=== PATIENT | female | born 2000 | race Caucasian/White ===

== ENCOUNTER → 2019-04-01 07:55 | Outpatient (BNVA) | payer MEDICAID, SELFPAY | PROVIDERS: Family Provider Physician Assistant Medical; PCP Physician Assistant Medical; Visit Provider Obstetrics & Gynecology | DX: Z34.90 Encounter for supervision of normal pregnancy, unspecified, unspecified trimester (principal) | CPT/HCPCS: 81003 ==

== ENCOUNTER → 2019-04-15 08:35 | Outpatient (BNVA) | payer MEDICAID, SELFPAY | PROVIDERS: Family Provider Physician Assistant Medical; PCP Physician Assistant Medical; Visit Provider Obstetrics & Gynecology | DX: Z34.90 Encounter for supervision of normal pregnancy, unspecified, unspecified trimester (principal) | CPT/HCPCS: 81000; 81003; 87081 ==

== ENCOUNTER → 2019-04-22 08:00 | Outpatient (BNVA) | payer MEDICAID, SELFPAY | PROVIDERS: Family Provider Physician Assistant Medical; PCP Physician Assistant Medical; Visit Provider Obstetrics & Gynecology | DX: Z34.90 Encounter for supervision of normal pregnancy, unspecified, unspecified trimester (principal) | CPT/HCPCS: 81000; 81003 ==

== ENCOUNTER → 2019-04-29 08:53 | Outpatient (BNVA) | payer MEDICAID, SELFPAY | PROVIDERS: Family Provider Physician Assistant Medical; PCP Physician Assistant Medical; Visit Provider Obstetrics & Gynecology | DX: Z34.90 Encounter for supervision of normal pregnancy, unspecified, unspecified trimester (principal) | CPT/HCPCS: 81003 ==

== ENCOUNTER 2019-05-04 19:33 | Inpatient (IN) | payer MEDICAID, SELFPAY ==
[2019-05-04] VITALS (40 sets, daily range): BP systolic 0–151; BP diastolic 0–89; PULSE 73–116; RESP 16–18; TEMP 36.7–37; BMI 27.1
[2019-05-04 17:16] LABS: Nitrazine Paper, PH Inconclusive
[2019-05-04 17:26] LABS: Actim Prom Positive
[2019-05-04 17:45] LABS: Glucose Urine UA Norm (Normal); Ketones Urine Negative (Negative); Protein Urine Neg (Negative); Specific Gravity, Urine 1.015 (1.005-1.030); Urine Appearance Clear (CLEAR); Urine Color Yellow (Yellow); pH Urine 6.5 (5-7)
[2019-05-04 17:46] LABS: Add Urine Microscopic? YES; Bilirubin Urine Neg (NEGATIVE); Blood Urine 2+ (Negative); Leukocyte Esterase Urine Negative (Negative); Nitrate Urine Negative (Negative); Squamous Epithelial Cell Urine 0-4 (0-5); Urobilinogen Urine Norm (Negative)
[2019-05-04 17:47] LABS: Bacteria Urine TRACE; Mucus Urine TRACE
[2019-05-04 17:49] LABS: Add Urine Culture? No; Amphetamines Screen Urine Negative (Negative); Barbiturates Screen Urine Negative (Negative); Benzodiazepines Screen Urine Negative (Negative); Cocaine Screen Urine Negative (Negative); Opiate Screen Urine Negative (Negative); PCP Screen Urine Negative (Negative); THC Screen Urine Negative (Negative)
[2019-05-04 19:17] LABS: Basophils % 0.4 %; Eosinophils # 0.1 10^3/uL (0.0-0.8); Eosinophils % 0.7 %; Hematocrit 33.5 % (37.0-47.0); Hemoglobin 11.3 g/dL (11.5-15.3); Lymphocytes # 2.2 10^3/uL (0.8-4.8); Lymphocytes % 20.6 %; Mean Corpuscular HGB Conc 33.7 g/dL (30.0-36.0); Mean Corpuscular Hemoglobin 27.5 pg (28.0-34.0); Mean Corpuscular Volume 81.5 fL (81-99); Mean Platelet Volume 12.3 fL (7.4-10.4); Monocytes # 0.9 10^3/uL (0.2-0.9); Monocytes % 8.9 %; Neutrophils # 7.3 10^3/uL (1.8-7.7); Neutrophils % 68.7 %; Nucleated Red Blood Cells % 0 %; Platelet Count 181 10^3/cmm (130-400); Red Blood Count 4.11 10^6/uL (4.1-5.3); Red Cell Distribution Width 12.2 % (12.1-15.1); White Blood Count 10.6 10^3/uL (4.0-10.0)
[2019-05-04] MEDS: fentaNYL 50 mcg/mL INJ 2mL IV ×2 (22:16→23:51)
[2019-05-05] VITALS (156 sets, daily range): BP systolic 0–151; BP diastolic 0–104; PULSE 75–157; RESP 16–22; TEMP 36.4–37.1; O2SAT 93–98
[2019-05-05] MEDS: fentaNYL 50 mcg/mL INJ 2mL IV ×3 (01:52→04:59)
[2019-05-05] MEDS: lactated ringers 1,000 ML 999 ML IV ×2 (06:19→07:28)
--- NOTE | 2019-05-05 08:01 | ANES.PROC ---
Anesthesia Procedures Procedure/Date: 05/05/19 Epidural: Time Out Performed: Yes Consents Signed: Procedure Consent Consent: requested by attending/covering physician, risks and benefits reviewed and patient agrees to proceed Lumbar Level: L4-L5 Epidural position: sitting Epidural procedure: sterile prep of area, 1% lidocaine to numb the area, 18 g needle, negative for paresthesia passed, neg for paresthesia, test dose given, 1.5% xylocaine 1:200k epi, placed PCEA, no systemic response, sterile dressing applied, L.U.D. no apparent complications and 0.2% Ropiavacaine @ mls/hr (13)
[2019-05-05] MEDS: dextrose 5%-lactated ringers 1,000 ML 125 ML IV (12:21)
--- NOTE | 2019-05-05 13:25 | PM.PN ---
Subjective Subjective: Interval history: 19-year-old female with an estimated gestational age of 39 weeks, with premature rupture of membranes in active labor. Patient refers feeling comfortable. Vitals/I&O/Wt Last Vital Signs Temp 97.7 F 05/05/19 11:00 Pulse 76 05/05/19 13:05 Resp 16 05/05/19 11:00 BP 0/0 05/05/19 13:23 Pulse Ox 96 05/05/19 07:59 05/04/19 05/05/19 05/05/19 22:59 06:59 14:59 Intake Total 466.2 / 466.2 Balance 466.2 / 466.2 Weight last 48 hrs Weight 151 lb Physical Exam Narrative: EXAM NARRATIVE: GA: Alert and oriented ?3. Lungs: Clear to auscultation bilaterally. Heart: regular rhythm and rate. Abdomen: Gravid, fundal height correlates dates, nontender. FREIGHT ASSOCIATE: SVE; dilation: 7 cm, effacement: 90 %, station: 0, presentation: vertex, membranes: Prom. Extremities: no edema, no cyanosis, no calves pain. heart tracing: Basal rate: 130s bpm, Variability: moderate, Accelerations: present, Decelerations: absent, Contractions: every 4-5 minutes. Urinary Catheter Management^: Salgado: Cath Placed During This Visit: yes Urethral Indwelling: Yes Reason for Continuing Indwelling Catheter: Other Urinary Catheter Date of Insertion: 05/05/19 Urinary Catheter Time of Insertion: 08:35 Data : 05/04/19 18:54 A&P Assessment and plan (1) Term : 1-year-old female with term active labor. Epidural placed. Progressing slowly. Oxytocin augmentation recommended. Feels Stimulation positive. heart tracing reassuring. Anticipate vaginal delivery. Status: Acute Code(s): Z34.90 - Encounter for supervision of normal , unspecified, unspecified trimester (2) PROM with onset of labor more than 24 hours following rupture: The patient was started with prophylactic antibiotics. Status: Acute Code(s): O42.10 - Premature rupture of membranes, onset of labor more than 24 hours following rupture, unspecified weeks of gestation Attestations Medical Necessity Statement*: In my professional opinion perr admitting diagnosis. Coding Level of Care Code Acute Intervention Manager for g Fwd Diagnoses Term Z34.90 PROM with onset of labor more than 24 hours following rupture O42.10
[2019-05-05] MEDS: oxytocin 30 UNIT/500 ML BAG IV (13:28)
[2019-05-05] MEDS: ampicillin 2,000 MG in sodium chloride 0.9% (plus) 50 ML 100 MG IV (18:49)
[2019-05-05] MEDS: methylergonovine 0.2 mg/mL INJ 1 mL IM (20:34)
--- NOTE | 2019-05-05 20:50 | P.PCNOB_ITS ---
Delivery Note: Date of delivery: May 05, 2019 Pre-delivery diagnoses: term . Premature rupture of membranes. Post-delivery diagnoses: Term delivered. Procedure: Spontaneous vaginal delivery Delivering Physician: Joshua Duong M.D. Estimated blood loss (mL): 500 Pre-Delivery Course: The patient is a 19 yo G 1 P 0 at 39+4 weeks EGA who has been receiving care from [facility]. Came to labor and delivery referring possible rupture of membranes. The contractions are occurring at 5-10 minute intervals with approximately 30 second duration. She continues to feel movement between the contractions. She denies vaginal bleeding.. Actimprom positive LMP: June 2018 Estimated date of confinement: 05/08/2019 by ultrasound at 11 weeks CC: Onset of labor at term. HPI: Received appropriate care. Daily vitamins since two months prior to conception. labs have all been normal, including negative for HIV. She was found to negative for Group B Strep from screening at 36 weeks. She has gained approximately 17 lbs throughout the . She denies a history of HTN during . Glucose tolerance screening for gestational diabetes was negative. Delivery: The patient was noted to be complete and pushing, so was placed in the dorsal lithotomy position, prepped and draped in the usual sterile fashion for a vaginal delivery. Pt. Noted to have epidural anesthesia. The patient delivered a viable at 39+5 female infant weighing 3335 g with scores of 7 and 9 at one and five minutes, respectively. The vertex was delivered spontaneously over intact perineum. The patient was asked to push and the head delivered spontaneously in the TORRES position, over an intact perineum. A nuchal cord was checked and none noted. The anterior shoulder delivered easily and the posterior shoulder followed. The remainder of the was easily delivered and the oropharynx and nasopharynx was bulb suctioned. The infant was noted to have spontaneous cry and spontaneous movement of all four extremities. The cord was clamped x 2 and cut and noted to have 2 arteries and one vein. The infant was passed to the mother's abdomen where nursing personnel were in attendance.. The placenta delivered intact spontaneously and the uterus was explored. 20 units of Pitocin was placed in the IV bag to firm the uterus. Examination of the cervix and vaginal vault did not reveal any lacerations. A vaginal pack was then placed. Examination of the perineum showed no lacerations. The vaginal pack was then removed. The patient tolerated this procedure well, and recovered in L&D with her infant [or note if taken to NICU]. All sponge and needle counts were correct. Post-Delivery Status: good and stable A&P Assessment and plan (1) Term : Status: Resolved Code(s): Z34.90 - Encounter for supervision of normal , unspecified, unspecified trimester (2) PROM with onset of labor more than 24 hours following rupture: Status: Resolved Code(s): O42.10 - Premature rupture of membranes, onset of labor more than 24 hours following rupture, unspecified weeks of gestation Coding Level of Care Code Acute System Planning Engineer for Chg Fwd Diagnoses Term Z34.90 PROM with onset of labor more than 24 hours following rupture O42.10
[2019-05-06] VITALS (8 sets, daily range): BP systolic 101–134; BP diastolic 63–89; PULSE 78–94; RESP 12–18; TEMP 36.4–36.8; O2SAT 97
[2019-05-06] MEDS: docusate sodium 100 mg Capsule PO ×2 (10:42→18:54)
[2019-05-06] MEDS: prenatal vitamin Capsule 1 CAP PO (10:43)
[2019-05-06 12:00] LABS: Hemoglobin 9.2 g/dL (11.5-15.3); Mean Corpuscular HGB Conc 32.9 g/dL (30.0-36.0); Mean Corpuscular Hemoglobin 28.2 pg (28.0-34.0); Mean Corpuscular Volume 85.9 fL (81-99); Platelet Count 149 10^3/cmm (130-400); Red Blood Count 3.26 10^6/uL (4.1-5.3); Red Cell Distribution Width 12.4 % (12.1-15.1); White Blood Count 16.6 10^3/uL (4.0-10.0)
[2019-05-06] MEDS: HYDROcodone-acetaminophen 5-325 mg Tablet PO (18:54)
--- NOTE | 2019-05-06 20:27 | PC.NURSE ---
RHOGAM ADMINISTRATION WHEN THIS NURSE TRIED SCANNING RHOGAM FOR ADMINISTRATION, SCREEN FLASHED MESSAGE SAYING LOT NUMBER INCORRECT. THIS NURSE NOTED LOT NUMBER AND EXPIRATION DATE/TIME FOR RHOGAM WERE PRINTED ON VIAL BUT NOT SCANNABLE. THIS NURSE REVIEWED PT WRISTBAND, BLOOD BAND NUMBERS WITH BLOOD BANK WHEN PICKING UP RHOGAM, AND REVIEWED ALL INFORMATION FOR RHOGAM INCLUDING PT NAME, , MEDICAL NUMBER, BLOOD BANK NUMBER, RHOGAM LOT AND EXPIRATION NUMBERS WITH Iesha KIRKLAND RN BEFORE ADMINISTERING TO PT. THIS NURSE TOOK PT VITALS BEFORE ADMINISTRATION. LOT NUMBER OF RHOGAM IS [id number]. EXPIRATION DATE/TIME FOR RHOGAM IS 12/07/20 7700. PT TOLERATED ADMINISTRATION TO RIGHT ARM WELL.
[2019-05-07 03:36] VITALS: BP 110/63; PULSE 56; RESP 16; TEMP 36.5; O2SAT 98
[2019-05-07] MEDS: prenatal vitamin Capsule 1 CAP PO (09:41)
[2019-05-07] MEDS: docusate sodium 100 mg Capsule PO (09:42)
[2019-05-07 11:00] VITALS: BP 117/68; PULSE 73; RESP 18; TEMP 36.7; O2SAT 98
--- NOTE | 2019-05-07 12:58 | PM.OBGYDC ---
Discharge Providers SENIOR BOILER OPERATOR Date of Admission: 05/04/19 19:33 Date of Discharge: 05/27/19 Attending Provider at Admission: Josuha Duong MD Attending Provider at Discharge: Joshua Duong MD Primary Care Provider: Francie Lane Diagnoses at Discharge Discharge Diagnosis (1) Term : Status: Resolved (2) PROM with onset of labor more than 24 hours following rupture: Status: Resolved Reason for Visit Reason for Visit: Reason For Visit: vaginal discharge Hospital Course Hospital Course: The patient is a 19 yo G 1 P 0 at 39+4 weeks EGA who has been receiving care from [facility]. Came to labor and delivery referring possible rupture of membranes. The contractions are occurring at 5-10 minute intervals with approximately 30 second duration. She continues to feel movement between the contractions. She denies vaginal bleeding.. Actimprom positive LMP: June 2018 Estimated date of confinement: 05/08/2019 by ultrasound at 11 weeks CC: Onset of labor at term. HPI: Received appropriate care. Daily vitamins since two months prior to conception. labs have all been normal, including negative for HIV. She was found to negative for Group B Strep from screening at 36 weeks. She has gained approximately 17 lbs throughout the . She denies a history of HTN during . Glucose tolerance screening for gestational diabetes was negative. Discharge Summary: Patient came to labor and delivery referring premature rupture of membranes. Premature rupture of membrane was confirmed. She progressed to have a spontaneous vaginal delivery without complications. recovery was uneventful. She delivered an girl at 39+4 weeks, Apgars 7/9 with weight of 3335 g. Information Peripartum Data: Infant Delivery Method: Vaginal Physical Exam Narrative: EXAM NARRATIVE: GA; alert and oriented x 3 HEENT: normal Breasts: engorged Nipples - skin intact Lungs; clear to auscultation Heart: regular rhythm, no murmurs. Abd: Appropriately tender. BS+. Uterine fundus below umbilicus. No Fundal Tenderness. Perineum: normal lochia. Extremities: no edema, no cyanosis, no tenderness. Urinary Catheter Management^: Salgado: Cath Placed During This Visit: yes Urethral Indwelling: Yes Reason for Continuing Indwelling Catheter: Other Urinary Catheter Date of Insertion: 05/05/19 Urinary Catheter Time of Insertion: 08:35 Discharge Data Data Completed and Pending: Laboratory Tests 05/06/19 11:51 WBC 16.6 H Hgb 9.2 L Hct 28.0 L Plt Count 149 Labs from last 24 hours 05/04/19 18:54 Blood Type B Negative Antibody Screen Positive Antibody Identific ation Anti-D Vitals: Last Vital Signs Temp 97.7 F 05/07/19 03:36 Pulse 56 L 05/07/19 03:36 Resp 16 05/07/19 03:36 BP 110/63 05/07/19 03:36 Pulse Ox 98 05/07/19 03:36 Discharge Plan Discharge Patient Disposition: Home, Self-Care Condition: Stable Prescriptions: New acetaminophen 325 mg Tablet 650 mg PO Q6H PRN (Reason: Mild pain or temp > 100.4) Qty: 60 RF: 0 ibuprofen 800 mg Tablet 800 mg PO TID Qty: 60 RF: 0 docusate sodium 100 mg Capsule 100 mg PO BID Qty: 60 RF: 0 ferrous sulfate 325 mg (65 mg iron) tablet,delayed release (DR/EC) 325 mg PO BID Qty: 60 RF: 0 Continued Vitamin 27 mg iron- 0.8 mg Tablet 1 tab PO DAILY RF: 0 Discharge Orders: Discharge Order (Routine); Ordered 05/07/19 Ordered By: Joshua Duong Referrals: Joshua Duong MD [Physician] - 06/17/19 12:45 pm (DR. CHANEL'S OFFICE IS GOING TO CALL YOU FOR A 6 WEEK APPT WITH HIM) Discharge Diet: Regular Discharge Activity: Increase activity as tolerated Patient Instructions: OB Discharge Report, OB Food/Drug Interaction Guide, OB Care at Home, OB Home Care, OB Proud Parent Packet, OB Vaginal Deliveries - [facility] Activity Restrictions/Additional Instructions: pelvic rest for 6 weeks. Return to the emergency room with any fever, increased bleeding or pain Discharge Date/Time: 05/07/19 15:45 Discharge Attestations SENIOR BOILER OPERATOR Time Spent in Discharge Care*: greater than 30 min Coding Level of Care Code Acute Organic Gardening Teacher for Chg Fwd Diagnoses Term Z34.90 PROM with onset of labor more than 24 hours following rupture O42.10
[2019-05-07 15:30] VITALS: BP 117/76; PULSE 75; RESP 16; TEMP 36.9; O2SAT 98
[2019-05-07 15:45] VITALS: BP 117/76; PULSE 75; RESP 16; TEMP 36.9; O2SAT 98
== END 2019-05-07 15:45 | disposition skilled nursing facility (03) | DRG 807 ==
LOC: OPOB 05-06 13:58 → OBGYN 05-06 13:58
PROVIDERS: Admitting Provider Obstetrics & Gynecology; Family Provider Physician Assistant Medical; PCP Physician Assistant Medical; Visit Provider Obstetrics & Gynecology
DX: O42.12 Full-term premature rupture of membranes, onset of labor more than 24 hours following rupture (principal); Z37.0 Single live birth; Z3A.39 39 weeks gestation of pregnancy; Z23 Encounter for immunization
CPT/HCPCS: 12345; 36415; 36430; 51702; 59025; 59409; 80307; 80500; 81001; 83986; 84112; 85025; 85027; 86850; 86900; 90384; 96372; 96374; 96375; 98960; 99211; A4216; A9270; J0290; J2210; J2795; J3010

== ENCOUNTER → 2021-05-24 11:37 | Outpatient (BNVA) | payer SELFPAY | PROVIDERS: Family Provider Physician Assistant Medical; Visit Provider Nurse Practitioner Family | DX: R07.0 Pain in throat (principal); R05.9 Cough, unspecified; B34.9 Viral infection, unspecified | CPT/HCPCS: 87400 ==

== ENCOUNTER → 2021-05-25 10:41 | Outpatient (BNVA) | payer SELFPAY | PROVIDERS: Family Provider Physician Assistant Medical; Visit Provider Nurse Practitioner Family | DX: R05.9 Cough, unspecified (principal); B34.9 Viral infection, unspecified; R07.0 Pain in throat | CPT/HCPCS: 87400 ==

== ENCOUNTER → 2023-01-24 08:56 | Outpatient (BNVA) | payer SELFPAY | PROVIDERS: Family Provider Physician Assistant Medical; Visit Provider Nurse Practitioner Women's Health | DX: Z32.00 Encounter for pregnancy test, result unknown (principal); Z36.87 Encounter for antenatal screening for uncertain dates; Z3A.01 Less than 8 weeks gestation of pregnancy | CPT/HCPCS: 76817; 81025 ==

== ENCOUNTER → 2023-02-16 11:50 | Outpatient (BNVA) | payer SELFPAY | PROVIDERS: Family Provider Physician Assistant Medical; Visit Provider Nurse Practitioner Women's Health | DX: Z34.80 Encounter for supervision of other normal pregnancy, unspecified trimester (principal) | CPT/HCPCS: 80307; 81000; 85025; 86592; 86762; 86803; 86850; 86900; 87077; 87086; 87184; 87340; 87806 ==

== ENCOUNTER → 2023-02-24 15:00 | Outpatient (BNVA) | payer SELFPAY | PROVIDERS: Family Provider Physician Assistant Medical; Visit Provider Obstetrics & Gynecology | DX: Z34.80 Encounter for supervision of other normal pregnancy, unspecified trimester (principal) | CPT/HCPCS: 81000; 87491; 87591; 88175 ==

== ENCOUNTER → 2023-03-31 09:10 | Outpatient (BNVA) | payer BC, MEDICAID, SELFPAY | PROVIDERS: Family Provider Physician Assistant Medical; Visit Provider Nurse Practitioner Women's Health | DX: Z34.80 Encounter for supervision of other normal pregnancy, unspecified trimester (principal) | CPT/HCPCS: 84315; 87086 ==

== ENCOUNTER → 2023-04-25 09:15 | Outpatient (BNVA) | payer BC, SELFPAY | PROVIDERS: Family Provider Physician Assistant Medical; Visit Provider Nurse Practitioner Women's Health | DX: Z34.82 Encounter for supervision of other normal pregnancy, second trimester (principal); Z36.9 Encounter for antenatal screening, unspecified | CPT/HCPCS: 76805 ==

== ENCOUNTER → 2023-05-24 09:22 | Outpatient (BNVA) | payer BC, SELFPAY | PROVIDERS: Family Provider Physician Assistant Medical; Visit Provider Nurse Practitioner Women's Health | DX: O26.90 Pregnancy related conditions, unspecified, unspecified trimester (principal); Z34.80 Encounter for supervision of other normal pregnancy, unspecified trimester | CPT/HCPCS: 81000; 82950 ==

== ENCOUNTER → 2023-06-20 15:20 | Outpatient (BNVA) | payer BC, SELFPAY | PROVIDERS: Family Provider Physician Assistant Medical; Visit Provider Obstetrics & Gynecology | DX: N20.2 Calculus of kidney with calculus of ureter (principal) | CPT/HCPCS: 76815 ==

== ENCOUNTER → 2023-06-23 08:10 | Outpatient (BNVA) | payer BC, SELFPAY | PROVIDERS: Family Provider Physician Assistant Medical; Visit Provider Obstetrics & Gynecology | DX: O26.892 Other specified pregnancy related conditions, second trimester (principal); Z34.82 Encounter for supervision of other normal pregnancy, second trimester; Z67.91 Unspecified blood type, Rh negative | CPT/HCPCS: 84315; 85025; 86850 ==

== ENCOUNTER → 2023-08-17 09:36 | Outpatient (BNVA) | payer BC, SELFPAY | PROVIDERS: Family Provider Physician Assistant Medical; Visit Provider Obstetrics & Gynecology | DX: Z34.80 Encounter for supervision of other normal pregnancy, unspecified trimester (principal) | CPT/HCPCS: 84315; 87081 ==

== ENCOUNTER 2023-08-24 17:26 | Outpatient (CLI) | payer BC, SELFPAY ==
[2023-08-24 17:30] VITALS: BMI 32.0
[2023-08-24 17:44] VITALS: BP 135/84; PULSE 104
[2023-08-24 18:04] VITALS: BP 120/72; PULSE 93
[2023-08-24 18:25] VITALS: BP 120/72; PULSE 93; RESP 16
[2023-08-24 21:45] LABS: Nitrazine Paper, PH Negative
== END 2023-08-24 18:25 | disposition home or self-care (01) ==
LOC: OPOB 17:31 → OBGYN 17:35
PROVIDERS: Obstetrics & Gynecology; Family Provider Physician Assistant Medical; Visit Provider Obstetrics & Gynecology
DX: O26.899 Other specified pregnancy related conditions, unspecified trimester (principal); Z3A.00 Weeks of gestation of pregnancy not specified; N89.8 Other specified noninflammatory disorders of vagina
CPT/HCPCS: 59025; 83986; 99211

== ENCOUNTER 2023-09-09 21:19 | Inpatient (IN) | payer BC, MEDICAID, SELFPAY ==
[2023-09-09 20:56] VITALS: BMI 32.9
[2023-09-09 21:46] VITALS: BP 112/83; PULSE 93
[2023-09-09 22:19] VITALS: BP 127/82; PULSE 88
[2023-09-09 23:21] VITALS: BP 121/80; PULSE 86
[2023-09-09 23:30] LABS: Basophils # 0.1 10^3/uL (0.0-0.1); Basophils % 0.5 %; Eosinophils # 0.1 10^3/uL (0.0-0.8); Eosinophils % 0.7 %; Lymphocytes # 2.7 10^3/uL (0.8-4.8); Lymphocytes % 26.7 %; Mean Corpuscular HGB Conc 34.4 g/dL (30-55); Mean Corpuscular Hemoglobin 28.7 pg (27-33); Mean Corpuscular Volume 83.5 fl (85-98); Mean Platelet Volume 13.4 fL (7.4-10.4); Monocytes # 0.9 10^3/uL (0.2-0.9); Monocytes % 9.1 %; Neutrophils # 6.33 10^3/uL (1.8-7.7); Neutrophils % 62.6 %; Nucleated Red Blood Cells % 0 %; Platelet Count 158 10^3/cmm (157-399); Red Blood Count 4.07 10^6/uL (3.85-5.65); Red Cell Distribution Width 12.9 % (12.1-15.1); White Blood Count 10.11 10^3/uL (3.29-11.43)
[2023-09-09] MEDS: miSOPROStol 100 mcg tablet 25 MCG VAGINAL (23:35)
[2023-09-09 23:46] VITALS: BP 113/66; PULSE 76
[2023-09-10] VITALS (46 sets, daily range): BP systolic 108–148; BP diastolic 55–86; PULSE 58–125; RESP 16–18; TEMP 36.6–37.4; O2SAT 92–99
[2023-09-10] MEDS: miSOPROStol 100 mcg tablet 25 MCG VAGINAL (04:15)
--- NOTE | 2023-09-10 11:51 | PM.OPHPUD ---
Labor & Delivery H&P Update Date of Procedure: September 10, 2023 Date H&P Performed: 09/07/23 Changes to previous documentation: No changes to H&P Admission Diagnosis: at 39.6 weeks gestation Rh- status History of ASCUS Pap with high risk HPV Preop diagnosis: 39.6 weeks IUP Planned procedure: Cervical ripening with trial of induction of labor
[2023-09-10] MEDS: lactated ringers 1,000 ML 999 ML IV ×4 (12:17→23:52)
--- NOTE | 2023-09-10 12:39 | P.PN_ITS ---
FLOOR SUPERVISOR Subjective 2 Subjective: Interval history: 23yo female at 39.6 wk IUP contract ing q 1-2 , rates pain as 4-5 but desires no med yet. Discussed AROM since she has continued to ctx , and can't continue Cytotec without risk of baby not tolerating it and increases risk of c/s. Pt understands. EFM- Cat 1 Cx- 1-2cm/60%/-3 VTX AROM- Copious clear fluid noted. Labor: Station: -4 Amniotic Membrane Status: Intact Monitor Mode: Palpation Contraction Pattern: Irregular Status: Category I Vitals/I&O/Wt Last Vital Signs Temp 98.0 F 09/10/23 08:46 Pulse 69 09/10/23 12:22 Resp 16 09/10/23 08:46 BP 122/81 09/10/23 12:22 O2 Del Method Room Air 09/09/23 20:56 Weight last 48 hrs Weight 81.647 kg Data 09/09/23 22:54 A&P Assessment and plan (1) 39 weeks gestation of : AROM Possible Augmentation with Pitocin if needed. GBS neg. (2) Rh negative status during : Qualifiers: Trimester: second trimester Qualified Code(s): O26.892 - Other specified related conditions, second trimester; Z67.91 - Unspecified blood type, Rh negative (3) Supervision of other normal : Attestations 2 Medical Necessity Statement*: Management of IOL for delivery. Coding Level of Care Code Acute Code for Chg Fwd Diagnoses 39 weeks gestation of Z3A.39 Rh negative status during in second trimester O26.892; Z67.91 Trimester: second trimester Supervision of other normal Z34.80
[2023-09-10] MEDS: dextrose 5%-lactated ringers 1,000 ML 125 ML IV ×2 (14:03→22:18)
[2023-09-10] MEDS: fentaNYL 50 mcg/mL INJ 2mL IVP ×4 (14:03→18:42)
[2023-09-10] MEDS: oxytocin 30 UNIT/500 ML BAG IV (18:33)
[2023-09-10] MEDS: ondansetron 2 mg/ML SDV 2 mL 4 MG IVP (18:40)
--- NOTE | 2023-09-10 19:28 | P.ANESASSM_ITS ---
Pre-Anesthetic Assessment Height/Weight: Height 1.57 m Weight 81.647 kg Temp Pulse Resp BP Pulse Ox O2 Del Method 97.8 F 65 16 135/80 92 Room Air 09/10/23 15:47 09/10/23 19:40 09/10/23 18:42 09/10/23 19:40 09/10/23 19:40 09/09/23 20:56 Preop Diagnosis: 39.6 weeks IUP Familial anesthetic complications: none Was Beta Jose taken within 24 hours: N/A Was Clonidine taken within 24 hours: N/A Social No alcohol and No tobacco Exam alert and oriented x 3 Airway Submandibular: within normal limits Cervical ROM: within normal limits Mallampati: Class I Dentition: full History/ROS No significant complaints Anesthetic Plan ASA status: 2 Anesthesia: Anesthesia Evaluation, General and Regional (specify below) Medications/Allergies Home Medications Medication Instructions Recorded Confirmed Last Taken Type PNV 153-FA 400 mcg-om3 35 mg-dha tab PO DAILY 02/24/23 09/07/23 09/09/23 11:00 History 25 mg-epa 5 mg-fish oil chew tablet ( Gummies) Allergies Allergy/AdvReac Type Severity Reaction Status Date / Time No Known Allergies Allergy Verified 09/07/23 15:14 Current Medications Generic Name Dose Route Start Last Admin Trade Name Linette PRN Reason Stop Dose Admin Fentanyl 25 - 100 mcg 09/10/23 13:55 09/10/23 18:42 Fentanyl 50 Mcg/Ml Inj 2ml IVP 100 mcg Q1H PRN Administration SEVERE PAIN Lactated Ringer's 1,000 mls @ 999 mls/hr 09/09/23 21:24 09/10/23 12:17 Lactated Ringers IV Infused .Q1H1M PRN Infusion Per L&D Rescitation Protocol Dextrose/Lactated Ringer's 1,000 mls @ 125 mls/hr 09/09/23 21:30 09/10/23 18:35 Dextrose 5%-Lactated Ringers IV Infused .Q8H DEANNA Infusion Oxytocin 30 unit in 500 mls @ 1 mls/hr 09/10/23 18:00 09/10/23 18:49 Pitocin IV 2 milliunit/min .Q24H DEANNA 2 mls/hr Titration Protocol 1 MILLIUNIT/MIN Lactated Ringer's 1,000 mls @ 999 mls/hr 09/10/23 18:29 09/10/23 18:36 Lactated Ringers IV 999 mls/hr .Q1H1M PRN Administration See label comments Ondansetron HCl 4 mg 09/09/23 21:24 09/10/23 18:40 Ondansetron 2 Mg/Ml Sdv 2 Ml IVP 4 mg Q4H PRN Administration NAUSEA AND VOMITING PFSH Anesthesia Medical History Anxiety Depression Kidney stones No pertinent past medical history Denies history of: hypertension, diabetes, heart, lung, liver, kidney problems, thyroid disease, dvt/pe PCP: none Surgical History No history of previous surgery Family History Grandmother Diabetes Paternal Thyroid disease Paternal Denies family history of Colon cancer Ovarian cancer Prostate cancer Heart disease Hyperlipidemia Breast cancer Hypertension Uterine cancer Stroke Female Reproductive History : 2 Data Anesthesia 09/09/23 22:54 Short CBC 09/09/23 Range/Units 22:54 WBC 10.11 (3.29-11.43) 10^3/uL Hgb 11.70 (11.27-16.99) g/dL Hct 34.0 L (36-47) % MCV 83.5 L (85-98) fl Plt Count 158 (157-399) 10^3/cmm Neut % (Auto) 62.6 % Neut # (Auto) 6.33 (1.8-7.7) 10^3/uL Blood Bank 09/09/23 22:54 Blood Type B Negative Rho(D) Type Rh negative Antibody Screen Positive Cardiac Studies: 2 No Data to Display
[2023-09-10] MEDS: ROPivacaine syringe 100 MG/50 ML SYRINGE 10 MG EPIDURAL (19:45)
--- NOTE | 2023-09-10 19:46 | ANES.PROC ---
Anesthesia Procedures Procedure/Date: 09/10/23 Epidural: Time Out Performed: Yes Consents Signed: Procedure Consent Consent: from patient, risks and benefits reviewed and patient agrees to proceed Lumbar Level: L3-L4 Epidural position: sitting Epidural procedure: sterile prep of area, 1% lidocaine to numb the area, 18 g needle, negative for paresthesia passed, neg for paresthesia, test dose given, 1.5% xylocaine 1:200k epi, placed PCEA, no systemic response, sterile dressing applied, L.U.D. no apparent complications and 0.2% Ropiavacaine @ mls/hr (13) Additional Comments: JENNI at 5, taped at 12 at skin. negative aspiration.
--- NOTE | 2023-09-10 20:08 | PM.OBGYPN ---
JEWELRY CASTING MODEL MAKER Subjective Subjective: Interval history: 23yo at 39.5 wk IUP seen for Cx exam 4cm/90%/-2 vtx, just received Epidural. EFM- reviewed with episode of decreased Variability.Appears to be returning . Pitocin at 2mu, Ctx q 2-4 . Labor: Station: -3 Amniotic Membrane Status: Ruptured Monitor Mode: Palpation Contraction Pattern: Regular Status: Category I Vitals/I&O/Wt Last Vital Signs Temp 97.8 F 09/10/23 15:47 Pulse 116 H 09/10/23 20:05 Resp 16 09/10/23 18:42 BP 113/61 09/10/23 20:00 Pulse Ox 98 09/10/23 20:05 O2 Del Method Room Air 09/09/23 20:56 09/10/23 09/10/23 09/10/23 06:59 14:59 22:59 Intake Total 1000 / 1000 1966.934 / 2966.934 Balance 1000 / 1000 1966.934 / 2966.934 Weight last 48 hrs Weight 81.647 kg Data 09/09/23 22:54 A&P Assessment and plan (1) 39 weeks gestation of : Continue care. (2) Rh negative status during : Qualifiers: Trimester: second trimester Qualified Code(s): O26.892 - Other specified related conditions, second trimester; Z67.91 - Unspecified blood type, Rh negative (3) Supervision of other normal : Attestations Medical Necessity Statement*: labor management Coding Level of Care Code Acute Code for Chg Fwd Diagnoses 39 weeks gestation of Z3A.39 Rh negative status during in second trimester O26.892; Z67.91 Trimester: second trimester Supervision of other normal Z34.80
--- NOTE | 2023-09-10 23:02 | P.PN_ITS ---
HOME APPLIANCE INSTALLER Subjective 2 Subjective: Interval history: Called by Nursing staff pt now 7-8cm/90%/0 with several variables noted. Will OBS closely. Labor: Station: -1 Amniotic Membrane Status: Ruptured Monitor Mode: Palpation Contraction Pattern: Regular Status: Category I Vitals/I&O/Wt Last Vital Signs Temp 99.3 F 09/10/23 20:39 Pulse 88 09/10/23 22:46 Resp 16 09/10/23 18:42 BP 120/71 09/10/23 22:46 Pulse Ox 98 09/10/23 20:10 O2 Del Method Room Air 09/09/23 20:56 09/10/23 09/10/23 09/11/23 14:59 22:59 06:59 Intake Total 1000 / 1000 1965.934 / 2966.934 Balance 1000 / 1000 / 2965. Weight last 48 hrs Weight 81.647 kg Physical Exam 2 Urinary Catheter Management: Salgado: Cath Placed During This Visit: yes Urinary Catheter Date of Insertion: 09/10/23 Urinary Catheter Time of Insertion: 20:10 Data 09/09/23 22:54 A&P Assessment and plan (1) 39 weeks gestation of : continue care (2) Rh negative status during : Qualifiers: Trimester: second trimester Qualified Code(s): O26.892 - Other specified related conditions, second trimester; Z67.91 - Unspecified blood type, Rh negative (3) Supervision of other normal : Attestations 2 Medical Necessity Statement*: management of labor Coding Level of Care Code Acute Code for Chg Fwd Diagnoses 39 weeks gestation of Z3A.39 Rh negative status during in second trimester O26.892; Z67.91 Trimester: second trimester Supervision of other normal Z34.80
[2023-09-10] MEDS: ROPivacaine syringe 100 MG/50 ML SYRINGE 13 MG EPIDURAL (23:06)
[2023-09-11] VITALS (18 sets, daily range): BP systolic 110–138; BP diastolic 58–86; PULSE 58–88; RESP 16–17; TEMP 36.4–36.7; O2SAT 97
--- NOTE | 2023-09-11 02:17 | P.PN_ITS ---
SALES AND EVENTS COORDINATOR Subjective 2 Subjective: Interval history: Pt sleeping, Cx9cm and attempt at reduction was successful, several trial pushes but pt has no pushing power and c/o fatigue. EFM- decreased variabilty, improved after scalp stim, then variables noted. Ctxs-Q 1-4 . Will dc epidural to get pt to feel ctx so she can push. Pt understands. Labor: Station: 0 Amniotic Membrane Status: Ruptured Monitor Mode: Palpation Contraction Pattern: Regular Status: Category I Vitals/I&O/Wt Last Vital Signs Temp 99.3 F 09/10/23 20:39 Pulse 82 09/11/23 02:02 Resp 16 09/10/23 18:42 BP 111/66 09/11/23 02:02 Pulse Ox 98 09/10/23 20:10 O2 Del Method Room Air 09/09/23 20:56 09/10/23 09/10/23 09/11/23 14:59 22:59 06:59 Intake Total 1000 / 1000 1971.801 / 2971.801 257.817 / 3229.618 Balance 1000 / 1000 1971.801 / 2971.801 257.817 / 3229.618 Weight last 48 hrs Weight 81.647 kg Physical Exam 2 Urinary Catheter Management: Salgado: Cath Placed During This Visit: yes Urinary Catheter Date of Insertion: 09/10/23 Urinary Catheter Time of Insertion: 20:10 Data 09/09/23 22:54 A&P Assessment and plan (1) 39 weeks gestation of : continue care. (2) Rh negative status during : Qualifiers: Trimester: second trimester Qualified Code(s): O26.892 - Other specified related conditions, second trimester; Z67.91 - Unspecified blood type, Rh negative (3) Uterine size date discrepancy, antepartum: (4) Supervision of other normal : Attestations 2 Medical Necessity Statement*: manage labor Coding Level of Care Code Acute Code for Chg Fwd Diagnoses 39 weeks gestation of Z3A.39 Rh negative status during in second trimester O26.892; Z67.91 Trimester: second trimester Uterine size date discrepancy, antepartum O26.849 Supervision of other normal Z34.80
--- NOTE | 2023-09-11 03:57 | P.PCNOB_ITS ---
Delivery Note: Date of delivery: September 11, 2023 Pre-delivery diagnoses: 39 wk IUP Rh neg Post-delivery diagnoses: Meconium stained fluid Nuchal cord x 1 (tight) Procedure: A complete dilatation the patient began to push with contractions with nursing assistance. A moderate amount of perineal swelling was noted. The vertex presented in a LOP presentation and rotated to VIPUL. A tight nuchal cord was clamped and cut at the perineum. The anterior followed by the posterior shoulders were delivered with the remainder of the baby's body to follow. A c opious amount of meconium stained fluid resulted after delivery. The baby was placed on the warmer for nursing assistance. The uterus was massaged and the Pitocin was started in a bolus manner. The placenta delivered in a Bloom presentation with trailing membranes. The uterus firmed well with massage. The perineal and vaginal vault were explored with no lacerations noted. 4/9 weight 7 pounds 6 viable female Op report anesthesia: Epidural Delivering Physician: Jayson CHAPA Estimated blood loss (mL): 300 Post Delivery Diagnoses: Rh negative status during : Qualifiers: Trimester: second trimester Qualified Code(s): O26.892 - Other specified related conditions, second trimester; Z67.91 - Unspecified blood type, Rh negative Pre-Delivery Course: Cytotec x 2 doses followed by AROM then Pitocin augmentation. Delivery: viable male Post-Delivery Status: Stable History History History 2 Term 1 0 Miscarriages/Ectopic 0 Living Children 1 A&P Assessment and plan (1) (spontaneous vaginal delivery): Begin care (2) 39 weeks gestation of : (3) Rh negative status during : Qualifiers: Trimester: second trimester Qualified Code(s): O26.892 - Other specified related conditions, second trimester; Z67.91 - Unspecified blood type, Rh negative (4) Uterine size date discrepancy, antepartum: (5) Supervision of other normal : Coding Level of Care Code Acute Code for Chg Fwd Diagnoses (spontaneous vaginal delivery) O80 39 weeks gestation of Z3A.39 Rh negative status during in second trimester O26.892; Z67.91 Trimester: second trimester Uterine size date discrepancy, antepartum O26.849 Supervision of other normal Z34.80
[2023-09-11] MEDS: ibuprofen 800 mg tablet PO ×2 (14:09→21:50)
--- NOTE | 2023-09-11 16:00 | PC.NURSE ---
This nurse at bedside preparing to get hemagram, pt refused and requested the IV to be removed. This nurse educated the reasoning behind the hemagram, pt verbalized understanding and stated I feel fine, I am not dizzy and do not feel the need in another needle stick, I am afraid of needles. This nurse also educated that upon removing the IV, in the case or event that she were to hemorrhage that an IV would be placed to save her life and to give access for IV medicines/blood if needed. pt reported understanding and would like for the IV to be removed.
[2023-09-11] MEDS: docusate sodium 100 mg Capsule PO (21:50)
[2023-09-12 04:30] VITALS: BP 120/76; PULSE 73; RESP 16; TEMP 36.6
--- NOTE | 2023-09-12 08:00 | ANE.PACU2 ---
Inpatient post-anesthesia follow up: Airway intact: Yes Vital signs: Temperature 98.1 F Pulse Rate 77 Respiratory Rate 16 Blood Pressure 120/75 Pulse Oximetry 97 Oxygen Delivery Me thod Room Air Oxygen Flow Rate Fraction of Inspir ed Oxygen Hydration adequate: Yes Nausea and vomiting: No Pain level: 1 Mental status: Baseline Epidural Start/End: Epidural Start Date: 09/10/23 Epidural Start Time: 19:28 Epidural End Date: 09/11/23 Epidural End Time: 03:57
[2023-09-12] MEDS: PRENATAL VIT NO.130/IRON/FOLIC 1 EACH TABLET PO (09:57)
[2023-09-12] MEDS: ibuprofen 800 mg tablet PO (09:57)
[2023-09-12] MEDS: docusate sodium 100 mg Capsule PO (09:57)
--- NOTE | 2023-09-12 11:34 | PM.OBGYDC ---
Discharge Providers CUSTOMER TECHNICAL SERVICES MANAGER Date of Admission: 09/09/23 21:19 Date of Discharge: 09/12/23 Attending Provider at Admission: Felipa Tyler DO Attending Provider at Discharge: Joshua Duong MD Primary CUSTOMER TECHNICAL SERVICES MANAGER: Joshua Duong MD Diagnoses at Discharge Discharge Diagnosis (1) (spontaneous vaginal delivery): Status: Acute (2) 39 weeks gestation of : Status: Acute (3) Rh negative status during : Status: Acute Qualifiers: Trimester: second trimester Qualified Code(s): O26.892 - Other specified related conditions, second trimester; Z67.91 - Unspecified blood type, Rh negative (4) Uterine size date discrepancy, antepartum: Status: Acute (5) Supervision of other normal : Status: Acute Reason for Visit Reason for Visit: IOL Hospital Course Hospital Course Mrs. Dick 23-year-old female G2, P1 with an estimated gestational age at 39 weeks 6 days was admitted for elective induction. She progressed to have a spontaneous vaginal delivery without complications. observation uneventful. She is afebrile and hemodynamically stable day 1. Tolerating diet well. Ambulating without difficulty. She was counseled regarding pelvic rest for 6 weeks (no sex, no tampons, no vaginal douches). Return to the emergency room if any fever, increased bleeding or pain. Information Peripartum Data: Infant Delivery Method: Vaginal Physical Exam Narrative: GA; alert and oriented x 3 HEENT: normal Breasts: engorged Nipples - skin intact Lungs; clear to auscultation Heart: regular rhythm, no murmurs. Abd: Appropriately tender. BS+. Uterine fundus below umbilicus. No Fundal Tenderness. Perineum: normal lochia. Extremities: no edema, no cyanosis, no tenderness. Urinary Catheter Management: Salgado: Cath Placed During This Visit: yes, but has since been removed by the nurse Reason for Continuing Indwelling Catheter: Other Urinary Catheter Date of Insertion: 09/10/23 Urinary Catheter Time of Insertion: 20:10 Date Urinary Catheter Removed: 09/11/23 Time Urinary Catheter Discontinued: 02:40 History History History 2 Term 1 0 Miscarriages/Ectopic 0 Living Children 1 Discharge Data Studies Completed and Pending Laboratory Results WBC 10.11 10^3/uL (3.29-11.43) 09/09/23 22:54 RBC 4.07 10^6/uL (3.85-5.65) 09/09/23 22:54 Hgb 11.70 g/dL (11.27-16.99) 09/09/23 22:54 Hct 34.0 % (36-47) L 09/09/23 22:54 MCV 83.5 fl (85-98) L 09/09/23 22:54 MCH 28.7 pg (27-33) 09/09/23 22:54 MCHC 34.4 g/dL (30-55) 09/09/23 22:54 RDW 12.9 % (12.1-15.1) 09/09/23 22:54 Plt Count 158 10^3/cmm (157-399) 09/09/23 22:54 MPV 13.4 fL (7.4-10.4) H 09/09/23 22:54 Neut % (Auto) 62.6 % 09/09/23 22:54 Lymph % (Auto) 26.7 % 09/09/23 22:54 [place] % (Auto) 9.1 % 09/09/23 22:54 Eos % (Auto) 0.7 % 09/09/23 22:54 Baso % (Auto) 0.5 % 09/09/23:54 Neut # (Auto) 6.33 10^3/uL (1.8-7.7) 09/09/23 22:54 Lymph # (Auto) 2.7 10^3/uL (0.8-4.8) 09/09/23 22:54 [place] # (Auto) 0.9 10^3/uL (0.2-0.9) 09/09/23 22:54 Eos # (Auto) 0.1 10^3/uL (0.0-0.8) 09/09/23 22:54 Baso # (Auto) 0.1 10^3/uL (0.0-0.1) 09/09/23:54 Nucleated RBC % (auto) 0 % 09/09/23: Nucleated RBCs # 0.0 /100WBC 09/09/23 22:54 Blood Type B Negative 09/09/23 22:54 Rho(D) Type Rh negative 09/09/23 22:54 Antibody Screen Positive 09/09/23 22:54 Antibody Identification Anti-D 09/09/23 22:54 Vitals Last Vital Signs Temp 97.9 F 09/12/23 04:30 Pulse 73 09/12/23 04:30 Resp 16 09/12/23 04:30 BP 120/76 09/12/23 04:30 Pulse Ox 97 09/11/23 21:52 O2 Del Method Room Air 09/12/23 04:30 Results Labs OB ([facility]): Obstetrics US 06/20/23 Blood Type B Negative 09/09/23 Antibody Screen Positive 09/09/23 Hct 34.0 % (36-47) L 09/09/23 Hgb 11.70 g/dL (11.27-16.99) 09/09/23 Rho(D) Type Rh negative 09/09/23 Plt Count 158 10^3/cmm (157-399) 09/09/23 Hep Bs Antigen Non-reactive (Nonreactive) 02/16/23 Hepatitis C Antibody Non-reactive (Nonreactive) 02/16/23 Rubella IgG Antibody 25.8 IU/mL (0.0-10.0) H 02/16/23 RPR Nonreactive (Nonreactive) 02/16/23 HIV 1&2 Ab & HIV 1 Ag Non-reactive (Non-Reactiv) 02/16/23 TSH 0.36 uIU/mL (0.27-4.2) 03/28/18 Free T4 1.30 ng/dL (0.82-1.77) 03/28/18 C.trachomatis RNA (TMA) Not detected (NOT DETECTED) 02/24/23 N.gonorrhoeae RNA (TMA) Not detected (NOT DETECTED) 02/24/23 T. vaginalis Amp RNA Not detected (NOT DETECTED) 02/24/23 Chlamydia/GC Comment See note 02/24/23 Cystic Fibrosis Screen Negative 02/16/23 Glucose 1 Hr 50 gm 121 mg/dL (85-140) 05/24/23 HCG, Qual Positive (Negative) H 01/24/23 Urine Opiates Screen Negative ng/mL (Negative) 02/16/23 Ur Barbiturates Screen Negative ng/mL (Negative) 02/16/23 Ur Phencyclidine Scrn Negative ng/mL (Negative) 02/16/23 Ur Amphetamines Screen Negative ng/mL (Negative) 02/16/23 U Benzodiazepines Scrn Negative ng/mL (Negative) 02/16/23 Urine Cocaine Screen Negative ng/mL (Negative) 02/16/23 U Marijuana (THC) Screen Negative ng/mL (Negative) 02/16/23 Micro Urine Specimen 03/31/23 Pap Smear Interpret See note A 02/24/23 Discharge Plan Discharge Patient Disposition: Home Condition: Stable Prescriptions: New ibuprofen 800 mg tablet 800 mg PO TID PRN (Reason: pain) Qty: 60 0RF acetaminophen 325 mg capsule 325 mg PO Q4H PRN (Reason: fever or pain) Qty: 60 0RF docusate sodium [Colace] 100 mg capsule 100 mg PO BID Qty: 60 0RF Continued Gummies 400 mcg-35 mg- 25 mg-5 mg tablet,chewable PO DAILY Discharge Orders: Discharge Order (Routine); Ordered 09/12/23 Ordered By: Joshua Duong Referrals: Joshua Duong MD [Physician] - 6 Weeks Discharge Diet: Usual diet Discharge Activity: Limit activity as instructed Patient Instructions: Depression (DC), Opioid Safety (DC), Preeclampsia and Eclampsia After Delivery (GEN), Hemorrhage (DC), OB Discharge Report, OB Food/Drug Interaction Guide, OB Care at Home, Opioid Safety, OB Vaginal Deliveries - [facility], Abnormal Bleeding Activity Restrictions/Additional Instructions: 1. Please call [facility] on next working day to make your appointment in 6 weeks. 2. Please stay home until you come back to the clinic on first post-hospatilization check up. 3. Please follow instructions on your medications CAREFULLY. 4. If you have abdominal incision, do not cover it unless dressing is necessary because of drainage. OK to shower, but avoid bath. Leave steri-strips until they fall off. If they are still on one week after surgery, you may remove them. 5. If you had vaginal surgery or vaginal repair, Dr. Duong may instruct you to take SITZ bath. 6. Yellow, blood tinged odorous vaginal discharge is usually normal after hysterectomy or vaginal surgeries. 7. No SEXUAL INTERCOURSE, tampons, or douches until you are completely released from the post-operative care. 8. Avoid constipation by eating right and maybe using some Metamucil or Milk of Magnesia. 9. All prescription refills are given during the working hours. Please do no wait till it runs out. Call the clinic at [phone] before your medication runs out. The clinic will get in touch with your doctor to prescribe medications if necessary. 10. Please remain within 40 mile radius from our hospital because emergencies do happen now and then during the post-operative period. 11. If you have stairs at home, take one step at a time slowly and minimize the number of trips. It helps to stay in one floor for the next few days. No lifting except what you can lift by one hand until you are released from the post-operative care. 12. Driving is discouraged until you are well healed. It may be 3-4 weeks before you feel strong enough to drive. You should be able to turn and look through the rear window without pain and you should be able to push the brake pedal very hard without pain before you drive. No fast rules, but SAFETY should be your primary concern. DO NOT drive if you are on sedating medications such as narcotics. 13. Call the clinic (during working hours) to make urgent appointment or go to the Emergency room, if any of the following occurs: i. Vaginal bleeding becomes heavy, more than a period. ii. Incision becomes red and sore, or drains pus. iii. Your TEMPERATURE is over 100.4F or you have chill. iv. IV site becomes red and swollen (a little ``knot?? is usually OK) v. Persistent nausea and vomiting vi. Persistent constipation or diarrhea vii. Rash or allergic reaction to medications. Discharge Attestations CUSTOMER TECHNICAL SERVICES MANAGER Time Spent in Discharge Care*: greater than 30 min Coding Level of Care Code Acute Code for Chg Fwd Diagnoses (spontaneous vaginal delivery) O80 39 weeks gestation of Z3A.39 Rh negative status during in second trimester O26.892; Z67.91 Trimester: second trimester Uterine size date discrepancy, antepartum O26.849 Supervision of other normal Z34.80
[2023-09-12 12:40] VITALS: BP 120/75; PULSE 77; RESP 16; TEMP 36.7
== END 2023-09-12 13:45 | disposition home or self-care (01) | DRG 807 ==
LOC: OPOB 21:20 → OBGYN 21:20
PROVIDERS: Admitting Provider Obstetrics & Gynecology; Family Provider Physician Assistant Medical; Visit Provider Obstetrics & Gynecology
DX: O26.893 Other specified pregnancy related conditions, third trimester (principal); Z37.0 Single live birth; Z67.21 Type B blood, Rh negative; Z3A.39 39 weeks gestation of pregnancy; O69.81X0 Labor and delivery complicated by cord around neck, without compression, not applicable or unspecified; O77.0 Labor and delivery complicated by meconium in amniotic fluid
CPT/HCPCS: 51702; 59025; 59409; 80503; 85025; 86850; 86870; 86900; 96374; 96376; J2405; J2590; J2795; J3010; J7120; J7121

== ENCOUNTER → 2023-11-16 10:52 | Outpatient (BNVA) | payer BC, SELFPAY | PROVIDERS: Family Provider Physician Assistant Medical; Visit Provider Nurse Practitioner Family | DX: R39.9 Unspecified symptoms and signs involving the genitourinary system (principal); R10.9 Unspecified abdominal pain | CPT/HCPCS: 81000; 81025 ==

== ENCOUNTER → 2023-11-17 14:09 | Outpatient (BNVA) | payer BC, SELFPAY | PROVIDERS: Family Provider Physician Assistant Medical; Visit Provider Obstetrics & Gynecology | DX: Z12.4 Encounter for screening for malignant neoplasm of cervix (principal) | CPT/HCPCS: 87624 ==

== ENCOUNTER 2023-12-13 09:03 | Outpatient (CLI) | payer BC, SELFPAY ==
--- NOTE | 2023-12-13 09:15 | US_ITS ---
WS: [id number] RIGHT UPPER QUADRANT ULTRASOUND HISTORY: R10.9 - Unspecified abdominal pain COMPARISON: None available. Liver: 14.9 cm in length. Normal size liver and echogenicity. No bile duct dilatation or mass. Portal Vein: Normal hepatopetal flow with monophasic waveform. Gallbladder: Normally distended gallbladder with no stones or wall thickening. CBD: 0.3 cm Pancreas: Normal size and echogenicity. Right kidney: 11.0 cm in length. Normal size and echogenicity. No hydronephrosis or mass. Aorta and IVC: Unremarkable abdominal aorta and IVC. No ascites. US/US abdomen limited [id number] IMPRESSION: Normal right upper quadrant ultrasound.
== END 2023-12-13 09:04 | disposition home or self-care (01) ==
LOC: RAD 09:03
PROVIDERS: Family Provider Physician Assistant Medical; Visit Provider Obstetrics & Gynecology
DX: R10.9 Unspecified abdominal pain (principal)
CPT/HCPCS: 76705